=== PATIENT | female | born 1940 | race Caucasian/White ===

== ENCOUNTER 2016-06-20 06:53 | Inpatient (IN) | payer OTHER ==
[~2016-06-20] VITALS: Ht 167.6 cm; Wt 96.6 kg
[~2016-06-20 06:53] MED LIST: ACIPHEX20 MG PO; ASPIRIN81 M1 PO; ESCITALOPRAM OX10 MG PO; FLAX OIL1000 MG PO; FUROSEMIDE20 MG PO; IRON325 M1 PO; KLONOPIN1 MG PO; LISINOPRIL40 MG PO; OMEPRAZOLE40 M1 PO; PAXIL10 MG PO; PRESERVISIO1 CAPSULE PO; PROBIOTIC1 EACH PO; SOTALOL80 MG PO; VITAMIN D31000 UNIT PO; VYTORIN 10/41 TABLET PO
[2016-06-20 07:45] VITALS: BP 126/79
[2016-06-20 19:40] VITALS: BP 121/75
[2016-06-20 23:36] VITALS: BP 137/54
[2016-06-21 04:12] VITALS: BP 97/56
[2016-06-21 05:59] LABS: HEMATOCRIT 39.2 % (36.0-46.0); MCV 89.9 FL (83-99)
[2016-06-21 07:33] VITALS: BP 92/50
[2016-06-21 14:58] VITALS: BP 150/80
[2016-06-21 23:24] VITALS: BP 118/61
[2016-06-22 06:51] LABS: HEMATOCRIT 37.6 % (36.0-46.0); MCV 90.2 FL (83-99)
[2016-06-22 09:09] VITALS: BP 115/73
[2016-06-22 16:28] VITALS: BP 112/58
[2016-06-22 23:42] VITALS: BP 118/74
[2016-06-23 08:14] VITALS: BP 122/70
[2016-06-23] MEDS ORDERED: TYLENOL REGULA325 MG PO (09:23)
[2016-06-23] MEDS ORDERED: LIDOCAINE700 MG TD (09:25)
[2016-06-23] MEDS ORDERED: HYDROCODON-ACE1 EAC9 PO (09:25)
[2016-06-23] MEDS ORDERED: XARELTO10 MG PO (09:25)
[2016-06-23] MEDS ORDERED: CELECOXIB200 MG PO (09:25)
[2016-06-23] MEDS ORDERED: SENNA PLUS TAB1 EACH PO (09:25)
[2016-06-23] MEDS ORDERED: DILAUDID2 MG PO (10:05)
[2016-06-23 11:30] VITALS: BP 109/67
== END 2016-06-23 12:31 | DRG 470 ==
LOC: 3EAST 06:53 → 2SOUTH 06:53 → 3EAST 18:01
PROVIDERS: Orthopaedic Surgery
PROC: 3E0T3CZ (ICD-10-PCS; principal; 2016-06-20)
PROC: 0SRC0J9 Replacement of Right Knee Joint with Synthetic Substitute, Cemented, Open Approach (ICD-10-PCS; principal; 2016-06-20)
DX: M17.11 Unilateral primary osteoarthritis, right knee (principal); I95.81 Postprocedural hypotension; K50.90 Crohn's disease, unspecified, without complications; F41.9 Anxiety disorder, unspecified; I10 Essential (primary) hypertension; G25.81 Restless legs syndrome; K21.9 Gastro-esophageal reflux disease without esophagitis; I48.91 Unspecified atrial fibrillation; Z88.0 Allergy status to penicillin; Z91.041 Radiographic dye allergy status; Z87.891 Personal history of nicotine dependence; Z79.82 Long term (current) use of aspirin
CPT/HCPCS: 71010; 85014; 85018; 93005; C1713; J0131; J0690; J1170; J1885; J2250; J2270; J2405; J2765; J2795; J7050; L1820

== ENCOUNTER 2016-12-25 22:12 | Inpatient (IN) | payer OTHER ==
[~2016-12-25] VITALS: Ht 167.6 cm; Wt 101.0 kg
[~2016-12-25 22:12] MED LIST changes: -ASPIRIN81 M1 PO; +CELECOXIB200 MG PO; +DILAUDID2 MG PO; +FEOSOL325 MG PO; +HYDROCODON-ACE1 EAC9 PO; +LASIX20 MG PO; +LIDOCAINE700 MG TD; +LO-DOSE ASPIRIN81 M1 PO; +PRINIVIL10 MG PO; +SENNA PLUS TAB1 EACH PO; +TYLENOL REGULA325 MG PO; +XARELTO10 MG PO
[2016-12-26 07:29] VITALS: BP 141/70
[2016-12-26 12:41] VITALS: BP 122/62
[2016-12-26 15:34] VITALS: BP 115/59
[2016-12-26 18:00] VITALS: BP 149/66
[2016-12-26 21:07] VITALS: BP 113/56
[2016-12-27 00:18] VITALS: BP 107/68
[2016-12-27 04:21] VITALS: BP 114/56
[2016-12-27 07:04] LABS: HEMATOCRIT 36.9 % (36.0-46.0); MCV 89.8 FL (83-99)
[2016-12-27 07:44] LABS: ANION GAP 7 MEQ/L (2-14); CHLORIDE 104 MEQ/L (99-109); GFR ESTIMATE (CALCULATED) > 59 mL/min/; GLUCOSE 95 mg/dL (70-99); POTASSIUM 4.8 MEQ/L (3.7-5.4); SAMPLE HEMOLYSIS CHECK 0; SAMPLE ICTERIC CHECK 0; SAMPLE LIPEMIA CHECK 0; SODIUM 135 MEQ/L (136-147); UREA NITROGEN (BUN) 17 mg/dL (9-23)
[2016-12-27 08:18] VITALS: BP 103/55
[2016-12-27 15:25] VITALS: BP 103/56
[2016-12-27 19:56] VITALS: BP 103/57
[2016-12-28] VITALS (7 sets, daily range): BP systolic 102–124; BP diastolic 57–64
[2016-12-28 06:01] LABS: MCV 89.6 FL (83-99)
[2016-12-29 08:02] VITALS: BP 123/64
[2016-12-29] MEDS ORDERED: SENNA PLUS TAB1 EACH PO (08:12)
[2016-12-29] MEDS ORDERED: ELIQUIS2.5 MG PO (08:12)
[2016-12-29] MEDS ORDERED: HYDROCODON-ACE1 EAC7 PO (08:12)
[2016-12-29] MEDS ORDERED: CELECOXIB200 MG PO (08:15)
== END 2016-12-29 13:28 | DRG 470 ==
LOC: ENRESERV 22:12 → 2SOUTH 12-26 06:40 → 3WEST 12-26 06:40 → 2SOUTH 12-26 09:26 → 3WEST 12-26 12:24 → 2SOUTH 12-26 14:57 → 3WEST 12-28 07:12 → ENRESERV 12-28 07:19 → 3EAST 12-28 16:57
PROVIDERS: Orthopaedic Surgery
PROC: 0SRD0J9 Replacement of Left Knee Joint with Synthetic Substitute, Cemented, Open Approach (ICD-10-PCS; principal; 2016-12-26)
DX: M17.12 Unilateral primary osteoarthritis, left knee (principal); K50.90 Crohn's disease, unspecified, without complications; I48.91 Unspecified atrial fibrillation; G47.30 Sleep apnea, unspecified; I10 Essential (primary) hypertension; M41.9 Scoliosis, unspecified; G25.81 Restless legs syndrome; H35.30 Unspecified macular degeneration; Z85.3 Personal history of malignant neoplasm of breast; Z90.12 Acquired absence of left breast and nipple; Z96.651 Presence of right artificial knee joint; Z82.49 Family history of ischemic heart disease and other diseases of the circulatory system; Z83.3 Family history of diabetes mellitus
CPT/HCPCS: 71010; 80048; 85014; 85018; C1713; J0131; J0690; J1100; J1885; J2405; J2795; J3010; J7050; L1820